=== PATIENT | male | born 1980 | race Caucasian/White ===

== ENCOUNTER 2020-01-11 13:47 | Emergency (ER) | payer OTHER ==
[~2020-01-11] VITALS: Ht 165.1 cm; Wt 91.6 kg
[2020-01-11] MEDS ORDERED: MOBIC7.5 MG PO (15:03)
[2020-01-11] MEDS ORDERED: CYCLOBENZAPRINE5 MG PO (15:03)
[2020-01-11 15:06] VITALS: BP 128/77
== END 2020-01-11 15:08 | disposition home or self-care (01) ==
LOC: ER 13:47
DX: S16.1XXA Strain of muscle, fascia and tendon at neck level, initial encounter (principal); S09.90XA Unspecified injury of head, initial encounter; V49.9XXA Car occupant (driver) (passenger) injured in unspecified traffic accident, initial encounter; Y93.89 Activity, other specified; Y92.89 Other specified places as the place of occurrence of the external cause; Y99.8 Other external cause status